=== PATIENT | female | born 1950 | race African-American/Black ===

== ENCOUNTER 2023-10-08 14:14 | Outpatient (CLI) | payer MEDICARE, OTHER | END 2023-10-08 14:15 | disposition home or self-care (01) | LOC: CSHMRI 14:14 | PROVIDERS: ATTEND Surgery | DX: M47.812 Spondylosis without myelopathy or radiculopathy, cervical region (principal); M54.16 Radiculopathy, lumbar region | CPT/HCPCS: 72141; 72148 ==